=== PATIENT | male | born 1965 | race Caucasian/White ===

== ENCOUNTER 2017-09-08 16:38 | Emergency (ER) | payer SELFPAY ==
[~2017-09-08] VITALS: Ht 180.3 cm; Wt 84.8 kg
[~2017-09-08 16:38] MED LIST: LOPID; MOTRIN; PRAVACHOL
[2017-09-08 16:55] VITALS: BP 153/81
--- NOTE | 2017-09-08 17:18 | NUR ---
Patient ambulated to [facility] to be evaluated as fast track by Dr. Duke. RN evaluating patient.
[2017-09-08 17:25] LABS: BASOPHILS # (AUTO) 0.2 K/uL (0.00-0.22); EOSINOPHILS # (AUTO) 0.4 K/uL (0-0.4); HEMATOCRIT 44.7 % (36-52); MEAN CORPUSCULAR HEMOGLOBIN 31 pg (27-31); MEAN CORPUSCULAR HGB CONC 34 g/dL (33-37); MEAN CORPUSCULAR VOLUME 92 fL (80-94); MONOCYTES # (AUTO) 0.3 K/uL (0.8-1.0); NEUTROPHILS # (AUTO) 6.4 K/uL (1.8-7.7); PLATELET COUNT (AUTO) 147 K/uL (140-450); RED BLOOD CELL COUNT(AUTO) 4.87 MIL/uL (4.20-6.10); RED CELL DISTRIBUTION WIDTH 11.9 % (11.6-13.7); WHITE BLOOD COUNT (AUTO) 8.3 K/uL (4.8-10.8)
--- NOTE | 2017-09-08 17:36 | NUR ---
Pt taken to x-ray via w/c.
[2017-09-08 17:48] LABS: PROTHROMBIN TIME 10.4 secs (10.8-13.4)
--- NOTE | 2017-09-08 18:00 | NUR ---
52/M presents to the ED with complaints of cough and chest pain starting today. Pt states the cough started first and then he started to get chest pain from the cough. Patient is AOX4, ambulates with steady gait. VSS.
[2017-09-08 18:09] LABS: CARBON DIOXIDE 27.7 mmol/L (21-32); CREATININE 1.2 mg/dL (0.7-1.3); POTASSIUM 3.7 mmol/L (3.5-5.1)
[2017-09-08 18:15] LABS: ALBUMIN 3.8 g/dL (3.4-5.0); TOTAL BILIRUBIN 0.5 mg/dL (0.0-1.0)
[2017-09-08 18:35] VITALS: BP 137/106
--- NOTE | 2017-09-08 18:35 | NUR ---
Patient discharged with v/s stable. Written and verbal after care instructions given and explained. Patient alert, oriented and verbalized understanding of instructions. Ambulatory with steady gait. All questions addressed prior to discharge. ID band removed. Patient advised to follow up with PMD. Rx of Promethazine/Codeine 10mg-6.25mg/5ml given. Work excuse provided until 09/09/17. Patient educated on indication of medication including possible reaction and side effects. Opportunity to ask questions provided and answered.
== END 2017-09-08 18:35 | disposition home or self-care (01) ==
LOC: MED 16:38
DX: J40 Bronchitis, not specified as acute or chronic (principal); F17.200 Nicotine dependence, unspecified, uncomplicated; Z88.2 Allergy status to sulfonamides; Z88.0 Allergy status to penicillin; Z88.6 Allergy status to analgesic agent; Z91.013 Allergy to seafood
CPT/HCPCS: 36415; 71010; 80053; 83880; 84484; 85025; 85610; 99285